=== PATIENT | female | born 1995 | race Caucasian/White ===

== ENCOUNTER 2022-07-21 15:52 | Emergency (ER) | payer OTHER ==
[~2022-07-21] VITALS: Ht 157.5 cm; Wt 42.2 kg
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
--- NOTE | 2022-07-21 16:25 | NUR ---
LAC #20, BLOOD DRAWN AND COLLECTED BY PHLEB AT BEDSIDE
--- NOTE | 2022-07-21 16:29 | NUR ---
SWAB FOR COVID19 AND RAPID INFLUENZA SEN TO LAB
[2022-07-21] MEDS ORDERED: IV NS 0.9% 1,000 ML BAG IV ONE (16:30)
--- NOTE | 2022-07-21 16:31 | NUR ---
RT AT BEDSIDE FOR ABG
--- NOTE | 2022-07-21 16:34 | NUR ---
PT STATES THAT HER HEADACHE WENT DOWN FROM 08/13 TO 06/15
[2022-07-21 16:39] LABS: ABG BASE EXCESS -5.4 mmol/L; ABG PH 7.417 (7.350-7.450); ABG PO2 84.2 mmHg (75.0-100.0); COHb 0.3 % (0.5-1.5); MetHb 0.3 % (0.0-1.5); O2Hb 95.3 % (94.0-97.0); SITE, ABG Left Radial; VENT MODE, BG ROOM AIR
[2022-07-21 16:40] LABS: BASOPHILS # (AUTO) 0.1 K/uL (0.0-0.2); BASOPHILS % (AUTO) 0.2 % (0.0-2.0); EOSINOPHILS % (AUTO) 0.1 % (0.0-6.0); HEMATOCRIT 43 % (33-45); HEMOGLOBIN 13.8 g/dL (11.5-14.8); LYMPHOCYTES # (AUTO) 1.1 K/uL (0.8-4.8); LYMPHOCYTES % (AUTO) 2.4 % (20.0-44.0); MEAN CORPUSCULAR HGB CONC 32 g/dl (31.0-36.0); MEAN CORPUSCULAR VOLUME 84 fL (82-100); MONOCYTES # (AUTO) 2.2 K/uL (0.1-1.30); NEUTROPHILS # (AUTO) 40.9 K/uL (1.8-8.9); NEUTROPHILS % (AUTO) 92.3 % (43.0-81.0); PLATELET COUNT (AUTO) 439 K/uL (150-450); RED BLOOD CELL COUNT(AUTO) 5.07 MIL/uL (4.0-5.2)
--- NOTE | 2022-07-21 16:50 | NUR ---
URINE SAMPLE SENT TO LAB
[2022-07-21 17:01] LABS: WHITE BLOOD COUNT (AUTO) 44.4 K/uL (4.3-11.0)
--- NOTE | 2022-07-21 17:02 | NUR ---
WBC 44.4 PER DORI FROM LAB; DR VERA MADE AWARE.
[2022-07-21 17:05] LABS: CALCIUM, SERUM 9.1 mg/dL (8.5-10.1); CARBON DIOXIDE 24 mmol/L (21-32); CHLORIDE 99 mmol/L (98-107); CREATININE 1.2 mg/dL (0.6-1.3); GLUCOSE 94 mg/dL (74-106); POTASSIUM 3.4 mmol/L (3.5-5.1); SODIUM SERUM 135 mmol/L (136-145); UREA NITROGEN, BLOOD 18 mg/dL (7-18)
[2022-07-21 17:06] LABS: SERUM AMMONIA 13 umol/L (11-32)
[2022-07-21 17:11] LABS: ALANINE AMINOTRANSFERASE 152 U/L (12-78); ALBUMIN 3.5 g/dL (3.4-5.0); ALKALINE PHOSPHATASE 95 U/L (46-116); ASPARTATE AMINOTRANSFERASE 412 U/L (15-37); BILIRUBIN,DIRECT 0.2 mg/dL (0.0-0.2); BILIRUBIN,TOTAL 0.4 mg/dL (0.2-1.0); TOTAL PROTEIN, SERUM 7.7 g/dL (6.4-8.2)
[2022-07-21 17:12] LABS: ALCOHOL, BLOOD < 3 mg/dL (0-0)
[2022-07-21 17:17] LABS: BILIRUBIN,URINE NEGATIVE (NEGATIVE); COLOR,URINE YELLOW (YELLOW); LEUKOCYTE ESTERASE ,URINE NEGATIVE (NEGATIVE); NITRITE, URINE NEGATIVE (NEGATIVE); PH,URINE 5.5 (5.0-8.0); PROTEIN,URINE 1+ mg/dl (NEGATIVE); UGLUCOSE NEGATIVE (NEGATIVE); UROBILINOGEN,URINE 0.2 EU/dL (0.2)
[2022-07-21 17:19] LABS: THYROID STIMULATING HORMONE 0.678 uIU/mL (0.358-3.74)
--- NOTE | 2022-07-21 18:05 | NUR ---
CALLED [facility] [phone] DR. SPEAR WILL CALL US BACK.
--- NOTE | 2022-07-21 18:20 | NUR ---
PT SIGNED CONSENT FOR LUMBAR PUNCTURE PROCEDURE; FORM PLACED IN THE CHART.
[2022-07-21] MEDS ORDERED: IV NS 0.9% 1,000 ML IV ONE (18:30)
[2022-07-21] MEDS ORDERED: VANCOMYCIN 1 GM in IV D5W 250 ML IV ONE (18:30)
[2022-07-21] MEDS ORDERED: CEFEPIME 1 GM in IV D5W 50 ML IV ONE (18:30)
[2022-07-21 18:32] LABS: BACTERIA,URINE 2+ /HPF (None Seen); RBC,URINE 51-80 /HPF (0-2); SQUAMOUS EPITHELIAL CELL,UR 21-50 /HPF (None Seen); WBC,URINE 0-2 /HPF (0-3)
[2022-07-21 18:38] LABS: BAND % (MANUAL) 9 % (0.0-5.0); LYMPHOCYTES % (MANUAL) 5 % (16-48); MONOCYTES % (MANUAL) 6 % (0-11.0); NEUTROPHILS % (MANUAL) 80 (42-76)
[2022-07-21] MEDS ORDERED: ACYCLOVIR IV 500 MG in IV D5W 100 ML IV ONE (19:30)
--- NOTE | 2022-07-21 19:30 | NUR ---
CSF SAMPLE BROUGHT TO LAB
[2022-07-21 20:08] LABS: CSF GLUCOSE 74 mg/dL (40-70); CSF PROTEIN 37.64 mg/dL (15-45)
--- NOTE | 2022-07-21 21:16 | NUR ---
LP RESULTS STILL PENDING [facility] [phone] WILL CALL BACK FOR ACCEPTING INFO.
[2022-07-21 23:55] VITALS: BP 102/47
--- NOTE | 2022-07-22 00:10 | NUR ---
ACCEPTING INFO TO [facility] ETA [address] MAYORGA ED CALL FOR REPORT [phone]
--- NOTE | 2022-07-22 00:17 | NUR ---
REPORT GIVEN TO ANNETTE CHARGE NURSE AT [facility].
--- NOTE | 2022-07-22 00:39 | NUR ---
REPORT GIVEN [facility] 122 TO TRANSFER PT TO [facility].
--- NOTE | 2022-07-22 00:42 | NUR ---
NOTIFIED VALARIE CHI [phone] PT BEING TRANSFERRED TO [facility]
[2022-07-24 15:06] LABS: *CRYPTOCOCCUS AG, CSF Negative (Negative)
== END 2022-07-22 00:40 | disposition short-term general hospital (02) ==
LOC: ER 16:16
DX: D72.829 Elevated white blood cell count, unspecified (principal); G93.40 Encephalopathy, unspecified; R74.01 Elevation of levels of liver transaminase levels; R51.9 Headache, unspecified; F12.10 Cannabis abuse, uncomplicated; Z20.822 Contact with and (suspected) exposure to COVID-19
CPT/HCPCS: 99291; 96365; 96361; 96367; 62270; 93005; 87804 ×2; 87070; 71045; 76705; 70450; 82140; 85025; 80048; 87040 ×2; 87086; 83605; 80076; 84703; 85007; 81001; 36415; 84443; 85730; 89051; 87102; 36600; 87529; 86592; 87899; 87426; 80143; 80320; 80307; 87116; 87206; J0133; J3370; J7060 ×2; J7030; J0692; C9803; A4223; G0480